=== PATIENT | male | born 1965 | race Caucasian/White ===

== ENCOUNTER 2017-05-23 14:54 | Inpatient (IN) | payer MEDICAID ==
[~2017-05-23] VITALS: Ht 188 cm; Wt 103.1 kg
[~2017-05-23 14:54] MED LIST: ATEN-60; PROP1CAP
[2017-05-23 15:43] LABS: Basophils # (auto) 0.2 uL; Basophils % (auto) 0.8 % (0.0-2.0); CONDITION Y; Eosinophils # (auto) 0 uL; Eosinophils % (auto) 0.1 % (0.0-7.0); Hemoglobin 15.2 g/dL (13.5-17.5); Lymphocytes % (auto) 14.4 % (10.0-50.0); Mean Corpuscular Hemoglobin 30.3 pg (28.0-32.0); Mean Corpuscular Hgb Conc. 33.7 g/dL (32.0-36.0); Mean Platelet Volume 8.4 fL (7.4-10.4); Monocytes # (auto) 0.6 uL; Monocytes % (auto) 3.1 % (0.0-12.0); Neutrophils # (auto) 16.9 uL; Neutrophils % (auto) 81.6 % (37.0-80.0); Platelet Count (auto) 383 10^3/uL (140-450); Red Cell Distribution Width 13.9 % (11.6-16.0); White Blood Cell 20.6 10^3/uL (4.4-10.8)
[2017-05-23 15:54] LABS: Albumin 4.3 g/dL (3.4-5.0); Calcium 9.3 mg/dL (8.5-10.1); Magnesium 2.1 mg/dL (1.6-2.6); Potassium 4.3 mmol/L (3.5-5.1)
[2017-05-23 15:56] LABS: Bilirubin, Total 0.6 mg/dL (0.2-1.0); Total Protein 8.4 g/dL (6.4-8.2)
[2017-05-23] MEDS ORDERED: SODIUM CHLORIDE 0.9% 1,000 ML IV ONE (16:04)
[2017-05-23] MEDS ORDERED: HYDROcodone-ACET 10/325MG TAB PO ONE (17:30)
[2017-05-23] MEDS ORDERED: LORazepam 0.5 MG TAB PO PRN (18:45)
[2017-05-23] MEDS ORDERED: ACETAMINOPHEN 500 MG TAB PO PRN (18:45)
[2017-05-23] MEDS ORDERED: TEMAZEPAM 15 MG CAP PO PRN (18:45)
[2017-05-23] MEDS ORDERED: NITROGLYCERIN 0.4 MG SL TAB SL PRN (18:45)
[2017-05-23] MEDS ORDERED: HYDROcodone-ACET 5/325MG TAB PO PRN (18:45)
[2017-05-23] MEDS ORDERED: MORPHINE SULF INJ 2 MG/ML SYRINGE 1ML IV PRN (18:45)
[2017-05-23] MEDS: SODIUM CHLORIDE 0.9% 1,000 ML IV SCH (18:54)
[2017-05-23 19:17] LABS: INR 0.95 (0.9-1.15); Partial Thromboplastin Time 27.8 sec (22.64-33.71); Prothrombin Time 10.3 sec (9.37-12.3)
[2017-05-23 20:44] LABS: BUN/Creatinine Ratio 7.3; Calcium 8.4 mg/dL (8.5-10.1); Potassium 4.4 mmol/L (3.5-5.1)
[2017-05-23] MEDS ORDERED: PANTOPRAZOLE 40 MG TAB PO ONE (21:00)
[2017-05-23] MEDS ORDERED: LISI40TA PO (21:59)
[2017-05-23] MEDS ORDERED: OMEP20CA74 PO (22:01)
[2017-05-23] MEDS ORDERED: FENO145T20 PO (22:01)
[2017-05-23 22:09] VITALS: BP 139/81
[2017-05-23 22:30] VITALS: BP 139/83
[2017-05-24] MEDS: SODIUM CHLORIDE 0.9% 1,000 ML IV SCH ×3 (02:06→14:35)
[2017-05-24 05:27] VITALS: BP 146/84
[2017-05-24 06:16] LABS: Basophils # (auto) 0.1 uL; Basophils % (auto) 0.4 % (0.0-2.0); CONDITION Y; Eosinophils # (auto) 0.1 uL; Eosinophils % (auto) 0.8 % (0.0-7.0); Hematocrit 39.7 % (41.0-53.0); Hemoglobin 13.3 g/dL (13.5-17.5); Lymphocytes # (auto) 3.7 uL; Lymphocytes % (auto) 26.5 % (10.0-50.0); Mean Corpuscular Hemoglobin 30.3 pg (28.0-32.0); Mean Corpuscular Hgb Conc. 33.5 g/dL (32.0-36.0); Mean Corpuscular Volume 90.4 fL (80.0-100.0); Mean Platelet Volume 8.7 fL (7.4-10.4); Monocytes # (auto) 0.8 uL; Monocytes % (auto) 5.9 % (0.0-12.0); Neutrophils # (auto) 9.1 uL; Neutrophils % (auto) 66.4 % (37.0-80.0); Platelet Count (auto) 300 10^3/uL (140-450); Red Cell Distribution Width 13.9 % (11.6-16.0); White Blood Cell 13.8 10^3/uL (4.4-10.8)
[2017-05-24 06:52] LABS: Albumin 3.2 g/dL (3.4-5.0); BUN/Creatinine Ratio 12.8; Bilirubin, Total 0.3 mg/dL (0.2-1.0); Calcium 8.6 mg/dL (8.5-10.1); Potassium 4.2 mmol/L (3.5-5.1); Total Protein 6.4 g/dL (6.4-8.2)
[2017-05-24 08:28] VITALS: BP 151/84
[2017-05-24] MEDS: PANTOPRAZOLE 40 MG TAB PO SCH (09:03)
[2017-05-24] MEDS: PROMETHAZINE HCL 25 MG/ML 1ML IV PRN ×3 (09:03→18:10)
[2017-05-24] MEDS: MORPHINE SULF INJ 2 MG/ML SYRINGE 1ML IV PRN ×4 (09:03→22:37)
[2017-05-24 13:00] VITALS: BP 153/81
[2017-05-24 16:51] VITALS: BP 141/79
[2017-05-24 19:24] LABS: Urine Bilirubin Negative (Negative); Urine Blood Negative /uL (Negative); Urine Color Yellow (Yellow); Urine Glucose Normal (Normal); Urine Ketone Negative (Negative); Urine Nitrite Negative (Negative); Urine RBC <1 /hpf (0 - 3); Urine Urobilinogen Normal (Negative); Urine pH 5.5 (5.0-8.0)
[2017-05-24 21:34] VITALS: BP 150/88
[2017-05-25] MEDS: SODIUM CHLORIDE 0.9% 1,000 ML IV SCH ×2 (02:11→05:44)
[2017-05-25] MEDS: MORPHINE SULF INJ 2 MG/ML SYRINGE 1ML IV PRN (04:57)
[2017-05-25 05:09] LABS: Basophils # (auto) 0 uL; Basophils % (auto) 0.4 % (0.0-2.0); CONDITION Y; Eosinophils # (auto) 0.2 uL; Eosinophils % (auto) 1.9 % (0.0-7.0); Hematocrit 38.7 % (41.0-53.0); Hemoglobin 12.8 g/dL (13.5-17.5); Lymphocytes # (auto) 3.6 uL; Lymphocytes % (auto) 30.2 % (10.0-50.0); Mean Corpuscular Hemoglobin 30.2 pg (28.0-32.0); Mean Corpuscular Volume 91.3 fL (80.0-100.0); Mean Platelet Volume 8.6 fL (7.4-10.4); Monocytes # (auto) 0.8 uL; Monocytes % (auto) 7.2 % (0.0-12.0); Neutrophils # (auto) 7.1 uL; Neutrophils % (auto) 60.3 % (37.0-80.0); Platelet Count (auto) 289 10^3/uL (140-450); Red Cell Distribution Width 13.8 % (11.6-16.0); White Blood Cell 11.8 10^3/uL (4.4-10.8)
[2017-05-25 05:15] VITALS: BP 150/101
[2017-05-25 05:38] LABS: Albumin 3.3 g/dL (3.4-5.0); BUN/Creatinine Ratio 16.7; Calcium 8.8 mg/dL (8.5-10.1); Potassium 4.3 mmol/L (3.5-5.1)
[2017-05-25 05:41] LABS: Bilirubin, Total 0.2 mg/dL (0.2-1.0); Total Protein 6.9 g/dL (6.4-8.2)
[2017-05-25 08:00] VITALS: BP 150/101
[2017-05-25 08:30] VITALS: BP 159/97
[2017-05-25] MEDS: PANTOPRAZOLE 40 MG TAB PO SCH (09:12)
[2017-05-25 10:37] VITALS: BP 159/97
== END 2017-05-25 12:00 | disposition home or self-care (01) | DRG 460 ==
LOC: ER 15:07 → TELE 15:08 → TELE-WESTW 21:40
PROVIDERS: ADMIT Internal Medicine; ATTEND Hospitalist
DX: N17.0 Acute kidney failure with tubular necrosis (principal); I12.9 Hypertensive chronic kidney disease with stage 1 through stage 4 chronic kidney disease, or unspecified chronic kidney disease; E78.00 Pure hypercholesterolemia, unspecified; E78.5 Hyperlipidemia, unspecified; T67.4XXA Heat exhaustion due to salt depletion, initial encounter; J45.909 Unspecified asthma, uncomplicated; K21.9 Gastro-esophageal reflux disease without esophagitis; E86.0 Dehydration; F17.210 Nicotine dependence, cigarettes, uncomplicated; G89.29 Other chronic pain; Z71.89 Other specified counseling; D72.829 Elevated white blood cell count, unspecified; N18.9 Chronic kidney disease, unspecified
CPT/HCPCS: 36415; 71020; 76775; 80048; 80053; 80061; 80307; 81001; 82550; 83735; 84443; 85025; 85610; 85652; 85730; 86141; 93005; 96360; 96361

== ENCOUNTER 2017-07-31 21:54 | Emergency (ER) | payer MEDICAID ==
[~2017-07-31] VITALS: Ht 188 cm; Wt 97.1 kg
[~2017-07-31 21:54] MED LIST changes: -ATEN-60; +FENO145T20 PO; +GABA-497 PO; +LISI40TA PO; +NAP500T PO; +OMEP20CA74 PO; -PROP1CAP
[2017-07-31 23:48] LABS: Albumin 3.7 g/dL (3.4-5.0); Anion Gap 9 (5-15); Calcium 8.5 mg/dL (8.5-10.1); Carbon Dioxide 21 mmol/L (21-32); Chloride 110 mmol/L (98-107); Glucose 97 mg/dL (74-106); Magnesium 2.5 mg/dL (1.6-2.6); Potassium 4.2 mmol/L (3.5-5.1); Sodium 140 mmol/L (136-145)
[2017-07-31 23:55] LABS: Alkaline Phosphatase 115 U/L (45-117); Aspartate Aminotransferase 11 U/L (15-37); BUN/Creatinine Ratio 9.8; Bilirubin, Total 0.2 mg/dL (0.2-1.0); Blood Urea Nitrogen 58 mg/dL (7-18); GFR African American 13 mL/min; GFR Non-African American 11 mL/min; Total Protein 7.3 g/dL (6.4-8.2)
[2017-08-01 00:22] LABS: Urine Bilirubin Negative (Negative); Urine Blood Negative /uL (Negative); Urine Color Yellow (Yellow); Urine Glucose Normal (Normal); Urine Hyaline Cast FEW /lpf (0 - 2); Urine Ketone Negative (Negative); Urine Mucus FEW (None Seen); Urine Nitrite Negative (Negative); Urine RBC <1 /hpf (0 - 3); Urine Urobilinogen Normal (Negative)
[2017-08-01 02:30] LABS: Basophils # (auto) 0 uL; Basophils % (auto) 0.1 % (0.0-2.0); CONDITION Y; Eosinophils # (auto) 0.2 uL; Eosinophils % (auto) 1.2 % (0.0-7.0); Hematocrit 38.9 % (41.0-53.0); Hemoglobin 13.1 g/dL (13.5-17.5); Lymphocytes % (auto) 24.7 % (10.0-50.0); Mean Corpuscular Hgb Conc. 33.7 g/dL (32.0-36.0); Mean Corpuscular Volume 89.1 fL (80.0-100.0); Mean Platelet Volume 9.1 fL (7.4-10.4); Monocytes # (auto) 0.7 uL; Monocytes % (auto) 4.4 % (0.0-12.0); Neutrophils # (auto) 11.2 uL; Neutrophils % (auto) 69.6 % (37.0-80.0); Platelet Count (auto) 383 10^3/uL (140-450); Red Cell Distribution Width 13.6 % (11.6-16.0); White Blood Cell 16.1 10^3/uL (4.4-10.8)
[2017-08-01] MEDS ORDERED: MORPHINE SULF INJ 2 MG/ML SYRINGE 1ML IV ONE (02:45)
[2017-08-01] MEDS ORDERED: ONDANSETRON HCL 4 MG/2 ML VIAL IV ONE (02:45)
[2017-08-01] MEDS ORDERED: SODIUM CHLORIDE 0.9% 2,000 ML IV ONE (02:45)
[2017-08-01 03:41] VITALS: BP 126/82
== END 2017-08-01 04:01 | disposition home or self-care (01) ==
LOC: EDBD 21:54 → ER 21:59
DX: N19 Unspecified kidney failure (principal); E86.0 Dehydration; W92.XXXA Exposure to excessive heat of man-made origin, initial encounter; N18.9 Chronic kidney disease, unspecified; K21.9 Gastro-esophageal reflux disease without esophagitis; E78.5 Hyperlipidemia, unspecified; I12.9 Hypertensive chronic kidney disease with stage 1 through stage 4 chronic kidney disease, or unspecified chronic kidney disease; F17.210 Nicotine dependence, cigarettes, uncomplicated; Z79.899 Other long term (current) drug therapy; Y93.89 Activity, other specified; Y92.89 Other specified places as the place of occurrence of the external cause; Y99.8 Other external cause status
CPT/HCPCS: 36415; 80053; 81001; 83735; 84484; 85025; 96361; 96374; 96375; 99284; J2270; J2405; J7030

== ENCOUNTER 2018-05-07 17:41 | Inpatient (IN) | payer MEDICAID ==
[~2018-05-07] VITALS: Ht 188 cm; Wt 97.5 kg
[~2018-05-07 17:41] MED LIST changes: -FENO145T20 PO; +FENO1TAB42 PO; -GABA-497 PO; +GABA300C10 PO
[2018-05-07 19:26] LABS: Basophils # (auto) 0.1 uL; Basophils % (auto) 0.6 % (0.0-2.0); Eosinophils # (auto) 0 uL; Eosinophils % (auto) 0.2 % (0.0-7.0); Hematocrit 43.4 % (41.0-53.0); Hemoglobin 14.6 g/dL (13.5-17.5); Lymphocytes # (auto) 3.9 uL; Lymphocytes % (auto) 19.5 % (10.0-50.0); Mean Corpuscular Hemoglobin 30.7 pg (28.0-32.0); Mean Corpuscular Hgb Conc. 33.6 g/dL (32.0-36.0); Mean Corpuscular Volume 91.3 fL (80.0-100.0); Monocytes # (auto) 1.4 uL; Monocytes % (auto) 7.2 % (0.0-12.0); Neutrophils # (auto) 14.5 uL; Neutrophils % (auto) 72.5 % (37.0-80.0); Nucleated Red Blood Cells % 0.1 %; Platelet Count (auto) 405 10^3/uL (140-450); Red Blood Cells 4.75 10^6/uL (4.5-5.90); Red Cell Distribution Width 14.4 % (11.8-14.3); White Blood Cell 19.9 10^3/uL (4.4-10.8)
[2018-05-07 19:39] LABS: Albumin 3.9 g/dL (3.4-5.0); Calcium 9.3 mg/dL (8.5-10.1); Potassium 4.6 mmol/L (3.5-5.1)
[2018-05-07] MEDS ORDERED: SODIUM CHLORIDE 0.9% 2,000 ML IV ONE (19:45)
[2018-05-07 19:47] LABS: BUN/Creatinine Ratio 6.5; Bilirubin, Total 0.5 mg/dL (0.2-1.0)
[2018-05-07] MEDS ORDERED: ONDANSETRON HCL 4 MG/2 ML VIAL IV ONE (20:00)
[2018-05-07] MEDS ORDERED: PANTOPRAZOLE 40 MG/10 ML VIAL IV ONE (20:00)
[2018-05-07 20:25] LABS: Magnesium 2.4 mg/dL (1.6-2.6)
[2018-05-07 20:31] LABS: INR 0.89 (0.9-1.15); Partial Thromboplastin Time 29.2 sec (23.78-33.04); Prothrombin Time 9.6 sec (9.27-12.13)
[2018-05-07] MEDS ORDERED: HYDROcodone-ACET 5/325MG TAB PO PRN (22:00)
[2018-05-07] MEDS ORDERED: ONDANSETRON HCL 4 MG/2 ML VIAL IV PRN (22:00)
[2018-05-07] MEDS ORDERED: ACETAMINOPHEN 500 MG TAB PO PRN (22:00)
[2018-05-07] MEDS ORDERED: IBUPROFEN 600 MG TAB PO PRN (22:15)
[2018-05-07] MEDS ORDERED: ALBUMIN 5% 250 ML IV ONE (22:15)
[2018-05-07] MEDS ORDERED: SODIUM CHLORIDE 0.9% 1,000 ML IV SCH (22:30)
[2018-05-08] VITALS (8 sets, daily range): BP systolic 93–121; BP diastolic 57–72
[2018-05-08] MEDS ORDERED: AMOX500T3 PO (02:16)
[2018-05-08] MEDS ORDERED: PERCOT PO (02:16)
[2018-05-08 05:08] LABS: Urine Bacteria FEW /hpf (None Seen); Urine Blood Negative /uL (Negative); Urine Hyaline Cast MANY /lpf (0 - 2); Urine Mucus FEW (None Seen); Urine Specific Gravity 1.026 (1.001-1.035); Urine WBC 16 /hpf (0 - 3)
[2018-05-08] MEDS: PANTOPRAZOLE 40 MG TAB PO SCH (05:32)
[2018-05-08] MEDS ORDERED: SODIUM CHLORIDE 0.9% 500 ML IV ONE (06:00)
[2018-05-08] MEDS: OXYCODONE W/ ACETAMINOPHEN 5/325MG TABLET PO PRN ×6 (06:10→22:30)
[2018-05-08 06:41] LABS: Basophils # (auto) 0 uL; Basophils % (auto) 0.3 % (0.0-2.0); Eosinophils # (auto) 0 uL; Eosinophils % (auto) 0.3 % (0.0-7.0); Hematocrit 34.7 % (41.0-53.0); Hemoglobin 11.5 g/dL (13.5-17.5); Lymphocytes # (auto) 3.4 uL; Lymphocytes % (auto) 23.5 % (10.0-50.0); Mean Corpuscular Hemoglobin 30.5 pg (28.0-32.0); Mean Corpuscular Hgb Conc. 33.3 g/dL (32.0-36.0); Mean Corpuscular Volume 91.7 fL (80.0-100.0); Monocytes # (auto) 1.5 uL; Monocytes % (auto) 10.1 % (0.0-12.0); Neutrophils # (auto) 9.6 uL; Neutrophils % (auto) 65.8 % (37.0-80.0); Nucleated Red Blood Cells % 0.1 %; Platelet Count (auto) 304 10^3/uL (140-450); Red Blood Cells 3.79 10^6/uL (4.5-5.90); White Blood Cell 14.5 10^3/uL (4.4-10.8)
[2018-05-08 06:49] LABS: BUN/Creatinine Ratio 7.5; Calcium 8.2 mg/dL (8.5-10.1); Potassium 4.7 mmol/L (3.5-5.1)
[2018-05-08] MEDS: SODIUM BICARBONATE 50ML VIAL 50 ML in D5W/SOD CHL 0.45% 1,000 ML IV SCH ×2 (10:48→18:54)
[2018-05-09] MEDS: SODIUM BICARBONATE 50ML VIAL 50 ML in D5W/SOD CHL 0.45% 1,000 ML IV SCH ×3 (03:18→18:36)
[2018-05-09] MEDS: OXYCODONE W/ ACETAMINOPHEN 5/325MG TABLET PO PRN ×5 (04:45→23:18)
[2018-05-09 04:56] VITALS: BP 135/77
[2018-05-09] MEDS: PANTOPRAZOLE 40 MG TAB PO SCH (05:52)
[2018-05-09 06:12] LABS: Basophils # (auto) 0.1 uL; Basophils % (auto) 0.8 % (0.0-2.0); Eosinophils # (auto) 0.1 uL; Eosinophils % (auto) 0.6 % (0.0-7.0); Hematocrit 35.9 % (41.0-53.0); Lymphocytes # (auto) 2.2 uL; Lymphocytes % (auto) 19.7 % (10.0-50.0); Mean Corpuscular Hemoglobin 30.3 pg (28.0-32.0); Mean Corpuscular Hgb Conc. 33.4 g/dL (32.0-36.0); Mean Corpuscular Volume 90.7 fL (80.0-100.0); Monocytes % (auto) 8.5 % (0.0-12.0); Neutrophils % (auto) 70.4 % (37.0-80.0); Nucleated Red Blood Cells % 0.1 %; Platelet Count (auto) 321 10^3/uL (140-450); Red Blood Cells 3.96 10^6/uL (4.5-5.90); Red Cell Distribution Width 14.2 % (11.8-14.3); White Blood Cell 11.4 10^3/uL (4.4-10.8)
[2018-05-09 06:31] LABS: Calcium 8.7 mg/dL (8.5-10.1); Potassium 5.1 mmol/L (3.5-5.1)
[2018-05-09 06:37] LABS: Bilirubin, Total 0.3 mg/dL (0.2-1.0); Total Protein 6.7 g/dL (6.4-8.2)
[2018-05-09 06:39] LABS: BUN/Creatinine Ratio 14.9
[2018-05-09 08:37] VITALS: BP 140/81
[2018-05-09 11:13] LABS: Protein, Urine 32.5 mg/dL (0.0-11.9)
[2018-05-09 12:49] VITALS: BP 141/80
[2018-05-09 16:44] VITALS: BP 148/81
[2018-05-09 22:00] VITALS: BP 149/88
[2018-05-10] MEDS: OXYCODONE W/ ACETAMINOPHEN 5/325MG TABLET PO PRN ×2 (04:07→13:04)
[2018-05-10] MEDS: SODIUM BICARBONATE 50ML VIAL 50 ML in D5W/SOD CHL 0.45% 1,000 ML IV SCH ×2 (04:11→13:03)
[2018-05-10 05:24] VITALS: BP 164/98
[2018-05-10] MEDS: PANTOPRAZOLE 40 MG TAB PO SCH (05:48)
[2018-05-10 06:41] LABS: Basophils # (auto) 0.1 uL; Basophils % (auto) 0.5 % (0.0-2.0); Eosinophils # (auto) 0.1 uL; Eosinophils % (auto) 1.2 % (0.0-7.0); Hematocrit 35.6 % (41.0-53.0); Hemoglobin 11.9 g/dL (13.5-17.5); Lymphocytes # (auto) 2.8 uL; Mean Corpuscular Hemoglobin 30.7 pg (28.0-32.0); Mean Corpuscular Hgb Conc. 33.5 g/dL (32.0-36.0); Mean Corpuscular Volume 91.7 fL (80.0-100.0); Monocytes # (auto) 0.9 uL; Monocytes % (auto) 8.1 % (0.0-12.0); Neutrophils # (auto) 7.2 uL; Neutrophils % (auto) 65.2 % (37.0-80.0); Nucleated Red Blood Cells % 0.1 %; Platelet Count (auto) 320 10^3/uL (140-450); Red Blood Cells 3.88 10^6/uL (4.5-5.90); Red Cell Distribution Width 13.5 % (11.8-14.3); White Blood Cell 11.1 10^3/uL (4.4-10.8)
[2018-05-10 06:57] LABS: Potassium 4.5 mmol/L (3.5-5.1)
[2018-05-10 07:02] LABS: BUN/Creatinine Ratio 21.6; Calcium 8.7 mg/dL (8.5-10.1)
[2018-05-10 08:00] VITALS: BP 142/85
[2018-05-10] MEDS ORDERED: amLODIPine BESYLATE 5 MG TAB PO ONE (10:15)
[2018-05-10 12:00] VITALS: BP 150/82
[2018-05-11] MEDS ORDERED: amLODIPine BESYLATE 5 MG TAB PO SCH (10:00)
== END 2018-05-10 15:48 | disposition home or self-care (01) | DRG 469 ==
LOC: ER 17:50 → TELE 23:07 → TELE-CENTR 05-08 01:16
PROVIDERS: ADMIT Nurse Practitioner Family; ATTEND Internal Medicine
DX: N17.0 Acute kidney failure with tubular necrosis (principal); R65.10 Systemic inflammatory response syndrome (SIRS) of non-infectious origin without acute organ dysfunction; E27.8 Other specified disorders of adrenal gland; E87.8 Other disorders of electrolyte and fluid balance, not elsewhere classified; E86.0 Dehydration; I12.9 Hypertensive chronic kidney disease with stage 1 through stage 4 chronic kidney disease, or unspecified chronic kidney disease; K57.90 Diverticulosis of intestine, part unspecified, without perforation or abscess without bleeding; K40.90 Unilateral inguinal hernia, without obstruction or gangrene, not specified as recurrent; K21.9 Gastro-esophageal reflux disease without esophagitis; N18.9 Chronic kidney disease, unspecified; E78.5 Hyperlipidemia, unspecified; D64.9 Anemia, unspecified; F17.210 Nicotine dependence, cigarettes, uncomplicated; K76.0 Fatty (change of) liver, not elsewhere classified; M19.90 Unspecified osteoarthritis, unspecified site; N12 Tubulo-interstitial nephritis, not specified as acute or chronic; T39.395A Adverse effect of other nonsteroidal anti-inflammatory drugs [NSAID], initial encounter; Z96.642 Presence of left artificial hip joint; Z79.899 Other long term (current) drug therapy; Y92.89 Other specified places as the place of occurrence of the external cause; Z87.442 Personal history of urinary calculi
CPT/HCPCS: 36415; 71045; 74176; 76775; 80048; 80053; 81001; 82150; 82570; 83036; 83690; 83735; 83880; 84154; 84156; 84300; 84484; 85025; 85610; 85730; 87040; 93005; 96361; 96374; 96375; 99291; C9113; J2405

== ENCOUNTER 2019-02-25 15:44 | Emergency (ER) | payer MEDICAID ==
[~2019-02-25] VITALS: Ht 188 cm; Wt 99.8 kg
[~2019-02-25 15:44] MED LIST changes: -LISI40TA PO; -NAP500T PO; +PERCOT PO
[2019-02-25 15:52] VITALS: BP 157/90
== END 2019-02-25 17:44 | disposition home or self-care (01) ==
LOC: ER 15:44
DX: S61.215A Laceration without foreign body of left ring finger without damage to nail, initial encounter (principal); I12.9 Hypertensive chronic kidney disease with stage 1 through stage 4 chronic kidney disease, or unspecified chronic kidney disease; N18.9 Chronic kidney disease, unspecified; K21.9 Gastro-esophageal reflux disease without esophagitis; E78.5 Hyperlipidemia, unspecified; F17.210 Nicotine dependence, cigarettes, uncomplicated; Z87.442 Personal history of urinary calculi; W26.8XXA Contact with other sharp object(s), not elsewhere classified, initial encounter; Y93.E9 Activity, other interior property and clothing maintenance; Y92.096 Garden or yard of other non-institutional residence as the place of occurrence of the external cause; Y99.8 Other external cause status
CPT/HCPCS: 12001; 29130

== ENCOUNTER 2020-08-10 13:44 | Inpatient (IN) | payer MEDICAID ==
[~2020-08-10] VITALS: Ht 188 cm; Wt 105.0 kg
[~2020-08-10 13:44] MED LIST changes: +FENO145T27 PO; -FENO1TAB42 PO
[2020-08-10] MEDS ORDERED: MORPHINE SULFATE 4 MG/ML SYR/VIAL IV ONE (14:00)
[2020-08-10] MEDS ORDERED: ONDANSETRON HCL 4 MG/2 ML VIAL IV ONE (14:00)
[2020-08-10] MEDS ORDERED: ASPirin 81 mg TAB PO ONE (14:00)
[2020-08-10] MEDS ORDERED: NITROGLYCERIN 0.4 MG SL TAB SL ONE (14:00)
[2020-08-10 14:45] LABS: Basophils # (auto) 0.1 10 ^3/uL (0-0.2); Eosinophils # (auto) 0.2 10 ^3/uL (0-0.8); Eosinophils % (auto) 2.4 % (0.0-7.0); Hematocrit 42.7 % (41.0-53.0); Hemoglobin 14.4 g/dL (13.5-17.5); Lymphocytes # (auto) 3.4 10 ^3/uL (0.4-5.4); Lymphocytes % (auto) 34.9 % (10.0-50.0); Mean Corpuscular Hemoglobin 30.3 pg (28.0-32.0); Mean Corpuscular Hgb Conc. 33.8 g/dL (32.0-36.0); Mean Corpuscular Volume 89.6 fL (80.0-100.0); Monocytes # (auto) 0.8 10 ^3/uL (0-1.3); Neutrophils # (auto) 5.2 10 ^3/uL (1.6-8.6); Neutrophils % (auto) 53.7 % (37.0-80.0); Nucleated Red Blood Cells % 0.1 %; Platelet Count (auto) 330 10^3/uL (140-450); Red Blood Cells 4.77 10^6/uL (4.5-5.90); Red Cell Distribution Width 13.6 % (11.8-14.3); White Blood Cell 9.7 10^3/uL (4.4-10.8)
[2020-08-10 15:01] LABS: INR 0.92 (0.9-1.15); Partial Thromboplastin Time 25.3 sec (23.0-31.2)
[2020-08-10 15:02] LABS: Albumin 3.6 g/dL (3.4-5.0); Calcium 8.6 mg/dL (8.5-10.1); Magnesium 2.1 mg/dL (1.6-2.6); Potassium 4.1 mmol/L (3.5-5.1)
[2020-08-10 15:07] LABS: BUN/Creatinine Ratio 12.1; Bilirubin, Total 0.2 mg/dL (0.2-1.0); Total Protein 7.3 g/dL (6.4-8.2)
[2020-08-10] MEDS ORDERED: HEPARIN SODIUM (PORCINE) 5000 UNITS/ML 1ML VIAL IV ONE ×2 (15:30→15:45)
[2020-08-10] MEDS ORDERED: MORPHINE SULF INJ 2 MG/ML SYRINGE 1ML IV PRN (16:00)
[2020-08-10] MEDS ORDERED: NITROGLYCERIN 0.4 MG SL TAB SL PRN (16:00)
[2020-08-10] MEDS ORDERED: ONDANSETRON HCL 4 MG/2 ML VIAL IV PRN (16:00)
--- NOTE | 2020-08-10 16:00 | NUR ---
Patient resting in bed, no s/s of distress/SOB. Right radial site remains unchanged. Addendum: 08/10/20 at 1817 by Christine Durbin RN RN Time is to be for 1800, disregard time at 1600.
[2020-08-10] MEDS ORDERED: IOHEXOL 350 MG/ML 100ML IJ ONE (16:23)
[2020-08-10] MEDS ORDERED: LIDOCAINE 2%HCL (LOCAL ANESTH.) INJ 20ML MDV ONE (16:23)
[2020-08-10] MEDS ORDERED: VERAPAMIL 2.5MG/ML INJ 2ML VIAL IV ONE (16:52)
[2020-08-10] MEDS ORDERED: HEPARIN SODIUM (PORCINE) 5000 UNITS/ML 1ML VIAL ONE (16:52)
[2020-08-10] MEDS ORDERED: fentaNYL CITRATE 100 MCG/2 ML VL ONE (16:52)
[2020-08-10] MEDS ORDERED: ANGIOMAX 250 MG VIAL IV ONE (16:52)
[2020-08-10] MEDS ORDERED: MIDAZOLAM HCL 1MG/1ML-2 ML VIAL ONE (16:53)
[2020-08-10] MEDS ORDERED: SODIUM CHL 0.9% 50 ML ONE (16:53)
[2020-08-10] MEDS ORDERED: TICAGRELOR 90 MG TAB ONE (17:21)
[2020-08-10 17:23] LABS: Urine Bacteria NONE SEEN /hpf (None Seen); Urine Blood Negative /uL (Negative); Urine Hyaline Cast FEW /lpf (0 - 2); Urine Mucus FEW (None Seen); Urine Specific Gravity 1.019 (1.001-1.035); Urine WBC 1 /hpf (0 - 3)
[2020-08-10] MEDS ORDERED: ATORVASTATIN 20 MG TAB PO SCH (17:30)
--- NOTE | 2020-08-10 17:37 | NUR ---
Patient brought to recovery via [facility], report received from Eris, RN and Jannet RN. Patient is AO x 4, no s/s of distress, breaths are even and unlabored. Right radial site is benign, no s/s of bleeding or hematoma noted, Vasc Band in place. Positive circulation, movement and sensation noted to bilateral extremities. Continuous pulse ox in place to right first finger. Patient educated on post-procedure care and verbalized understanding.
--- NOTE | 2020-08-10 18:05 | NUR ---
Report given to JYOTI Mendoza.
--- NOTE | 2020-08-10 18:27 | NUR ---
Patient taken to telemetry unit via gurney, monitor worker in place. No s/s of distress noted upon departure. Primary RNKelly present at bedside to witness right radial site, benign, with no s/s of bleeding or hematoma. Vasc Band instructions given to primary RN. Bed is set in lowest locked position with side rails up x2, and call light is within reach. Care endorsed to JYOTI Mendoza.
[2020-08-10] MEDS: ATORVASTATIN 20 MG TAB PO SCH (18:57)
[2020-08-10] MEDS: HYDROcodone-ACET 5/325MG TAB PO PRN ×2 (18:58→23:59)
[2020-08-10] MEDS ORDERED: FENO48TA12 PO (19:09)
[2020-08-10] MEDS ORDERED: ALBUAER3 IN (19:09)
[2020-08-10] MEDS ORDERED: OMEP-260 PO (19:09)
[2020-08-10] MEDS ORDERED: METF-370 PO (19:09)
[2020-08-10] MEDS ORDERED: OXYC325T14 PO (19:09)
[2020-08-10] MEDS ORDERED: ALBU0.084 NEB (19:09)
[2020-08-10] MEDS ORDERED: BACL10TA PO (19:09)
[2020-08-10] MEDS ORDERED: ASPI-498 PO (19:09)
[2020-08-10] MEDS ORDERED: AMLO10TA13 PO (19:09)
--- NOTE | 2020-08-10 19:30 | NUR ---
START OF SHIFT PT. AWAKE AND ALERT IN BED ON CELLPHONE. PT. NOT IN ANY PAIN AT THIS TIME. PT. ENCOURAGED TO CALL WITH CALL LIGHT IF HE NEEDS ANYTHING. WILL CONTINUE TO MONITOR PT. PRN.
--- NOTE | 2020-08-10 19:45 | NUR ---
VASC BAND AIR REMOVAL 2ML REMOVED PER DAY RN INSTRUCTION/NOTES. NO BLEEDING AT SITE. PT. TOLERATED WELL. WILL CONTINUE TO MONITOR PT. STATUS.
--- NOTE | 2020-08-10 20:00 | NUR ---
VASC BAND AIR REMOVAL 2ML REMOVED PER DAY RN INSTRUCTION/NOTES. NO BLEEDING AT SITE. PT. TOLERATED WELL. WILL CONTINUE TO MONITOR PT. STATUS.
--- NOTE | 2020-08-10 20:12 | NUR ---
VASC BAND AIR REMOVAL 2ML REMOVED PER DAY RN INSTRUCTION/NOTES. NO BLEEDING AT SITE. PT. TOLERATED WELL. WILL CONTINUE TO MONITOR PT. STATUS.
--- NOTE | 2020-08-10 20:40 | NUR ---
VASC BAND AIR REMOVAL 2ML REMOVED PER DAY RN INSTRUCTION/NOTES. NO BLEEDING AT SITE. PT. TOLERATED WELL. WILL CONTINUE TO MONITOR PT. STATUS.
--- NOTE | 2020-08-10 21:00 | NUR ---
VASC BAND AIR REMOVAL 2ML REMOVED PER DAY RN INSTRUCTION/NOTES. NO BLEEDING AT SITE. PT. TOLERATED WELL. BAND IS EMPTY OF AIR AT THIS TIME. BAND REMAINS IN PLACE PT. IS ASLEEP AT THIS TIME. WILL REMOVE IN THE AM AND REPLACE WITH DRESSING. WILL CONTINUE TO MONITOR PT. STATUS.
[2020-08-10] MEDS: CARVEDILOL 3.125 MG TAB PO SCH (21:57)
[2020-08-10] MEDS: TICAGRELOR 90 MG TAB PO SCH (21:58)
[2020-08-10] MEDS: GABAPENTIN 300 MG CAP PO SCH (21:58)
[2020-08-10 22:00] VITALS: BP 150/82
[2020-08-11] MEDS: TICAGRELOR 90 MG TAB PO SCH ×2 (02:11→09:31)
[2020-08-11] MEDS: HYDROcodone-ACET 5/325MG TAB PO PRN (04:05)
--- NOTE | 2020-08-11 04:20 | NUR ---
RECEIVED REPORT FROM KULWINDER MONTES. PATIENT ASLEEP RIGHT NOW. NO SIGNS OF DISTRESS.
[2020-08-11 04:57] VITALS: BP 133/77
[2020-08-11 05:43] LABS: Albumin 3.4 g/dL (3.4-5.0); Calcium 8.8 mg/dL (8.5-10.1)
[2020-08-11 05:49] LABS: BUN/Creatinine Ratio 17.8; Bilirubin, Total 0.4 mg/dL (0.2-1.0); Total Protein 6.8 g/dL (6.4-8.2)
[2020-08-11] MEDS: GABAPENTIN 300 MG CAP PO SCH ×2 (06:00→13:44)
[2020-08-11 08:00] VITALS: BP 149/91
--- NOTE | 2020-08-11 09:02 | NUR ---
OPENING SHIFT NOTE Assumed care of patient. PT is awake and A&OX4. No S/S of distress/SOB. Instructed on POC and to call for assist PRN, patient verbalized understanding. Call light within reach and able to use. Will continue to monitor for changes Q1hr and PRN.
[2020-08-11] MEDS: MORPHINE SULF INJ 2 MG/ML SYRINGE 1ML IV PRN ×2 (09:29→14:06)
[2020-08-11] MEDS: CARVEDILOL 3.125 MG TAB PO SCH (09:30)
[2020-08-11] MEDS ORDERED: PANTOPRAZOLE 40 MG TAB PO SCH (10:00)
[2020-08-11] MEDS ORDERED: LISINOPRIL 5 MG TAB PO SCH (10:00)
[2020-08-11] MEDS ORDERED: ASPirin 81 mg TAB PO SCH (10:00)
--- NOTE | 2020-08-11 11:00 | NUR ---
Pt c/o 06/08 non-radiating chest pain on right side. v/s wnl, ekg shows NSR. Administered 1 dose of nitroglycerin. Pt felt better after. is aware.
[2020-08-11 12:00] VITALS: BP 133/78
--- NOTE | 2020-08-11 12:21 | NUR ---
[employer] Operator weekend Per consult for home health safety evaluation. Faxed clinical information to [facility] and [facility]. Per Arianne with [facility] patient has been accepted and service to start within 24-48hrs upon d/c day.
--- NOTE | 2020-08-11 13:00 | NUR ---
Spoke with dr sim. dr sim stated he can not give cardiac clearance as he has not seen pt. Messaged dr english. awaiting call back.
--- NOTE | 2020-08-11 13:33 | NUR ---
SPOKE WITH DR ZAMORA. CLEARED PT FROM CARDIAC STAND POINT AND GAVE INSTRUCTIONS FOR PLAVIX ADMINISTRATION. DR Richar GUNTER IS AWARE AND WILL PLACE ORDERS.
[2020-08-11 16:00] VITALS: BP 140/67
[2020-08-11] MEDS ORDERED: LISI-275 PO (16:09)
[2020-08-11] MEDS ORDERED: ASPI-498 PO (16:09)
[2020-08-11] MEDS ORDERED: CAR3125T PO (16:09)
[2020-08-11] MEDS ORDERED: CLOP75TA28 PO (16:09)
[2020-08-11] MEDS ORDERED: ATOR20TA50 PO (16:09)
[2020-08-11] MEDS ORDERED: CLOPIDOGREL 300 MG TAB PO ONE (17:00)
[2020-08-11] MEDS: ATORVASTATIN 20 MG TAB PO SCH (17:07)
--- NOTE | 2020-08-11 17:48 | NUR ---
Discharge instructions given as ordered. Encourage to follow up with PMD as instructed. All questions and concerns addressed. Patient verbalized understanding. Medication reconciliation form completed and copy given to patient. IV removed with catheter intact, pressure dressing applied. Telemetry unit returned to ICU. Patient LEFT with all personal belongings, accompanied by staff and family member. No distress noted at time of departure.
== END 2020-08-11 17:48 | disposition home health service (06) | DRG 174 ==
LOC: EDBD 13:44 → ER 13:44 → TELE-WESTW 13:45
PROVIDERS: ADMIT Internal Medicine; ATTEND Internal Medicine
PROC: 4A023N7 Measurement of Cardiac Sampling and Pressure, Left Heart, Percutaneous Approach (ICD-10-PCS; principal; 2020-08-10)
PROC: B2111ZZ Fluoroscopy of Multiple Coronary Arteries using Low Osmolar Contrast (ICD-10-PCS; 2020-08-10)
PROC: B2151ZZ Fluoroscopy of Left Heart using Low Osmolar Contrast (ICD-10-PCS; 2020-08-10)
PROC: 027034Z Dilation of Coronary Artery, One Artery with Drug-eluting Intraluminal Device, Percutaneous Approach (ICD-10-PCS; 2020-08-10)
DX: I21.4 Non-ST elevation (NSTEMI) myocardial infarction (principal); E66.3 Overweight; E78.5 Hyperlipidemia, unspecified; F17.210 Nicotine dependence, cigarettes, uncomplicated; J44.9 Chronic obstructive pulmonary disease, unspecified; G89.4 Chronic pain syndrome; K21.9 Gastro-esophageal reflux disease without esophagitis; I12.9 Hypertensive chronic kidney disease with stage 1 through stage 4 chronic kidney disease, or unspecified chronic kidney disease; F41.9 Anxiety disorder, unspecified; M19.90 Unspecified osteoarthritis, unspecified site; E11.9 Type 2 diabetes mellitus without complications; Z79.899 Other long term (current) drug therapy; Z86.73 Personal history of transient ischemic attack (TIA), and cerebral infarction without residual deficits; Z87.442 Personal history of urinary calculi; Z79.891 Long term (current) use of opiate analgesic; Z79.01 Long term (current) use of anticoagulants; Z84.1 Family history of disorders of kidney and ureter; Z90.49 Acquired absence of other specified parts of digestive tract; Z79.84 Long term (current) use of oral hypoglycemic drugs; Z68.29 Body mass index [BMI] 29.0-29.9, adult; Z79.82 Long term (current) use of aspirin
CPT/HCPCS: 36415; 71045; 80053; 80061; 81001; 83735; 83880; 84443; 84484; 85025; 85610; 85730; 86850; 86900; 86901; 92928; 93005; 93306; 93458; 96374; 96375; 99152; 99153; 99291; C1874; C1887; G0378; J2250; J2405

== ENCOUNTER 2020-11-20 13:39 | Emergency (ER) | payer MEDICAID ==
[~2020-11-20] VITALS: Ht 188 cm; Wt 103.0 kg
[~2020-11-20 13:39] MED LIST changes: +ALBU0.084 NEB; +ALBUAER3 IN; +ASPI-498 PO; +ATOR20TA50 PO; +BACL10TA PO; +CAR3125T PO; +CLOP75TA28 PO; -FENO145T27 PO; +FENO48TA12 PO; -GABA300C10 PO; +LISI-275 PO; +OMEP-260 PO; -OMEP20CA74 PO; +OXYC325T14 PO; -PERCOT PO
[2020-11-20 14:28] LABS: Basophils # (auto) 0.1 10 ^3/uL (0-0.2); Eosinophils # (auto) 0.2 10 ^3/uL (0-0.8); Eosinophils % (auto) 1.5 % (0.0-7.0); Hematocrit 37.2 % (41.0-53.0); Hemoglobin 12.5 g/dL (13.5-17.5); Lymphocytes # (auto) 2.9 10 ^3/uL (0.4-5.4); Lymphocytes % (auto) 21.5 % (10.0-50.0); Mean Corpuscular Hemoglobin 30.1 pg (28.0-32.0); Mean Corpuscular Hgb Conc. 33.6 g/dL (32.0-36.0); Mean Corpuscular Volume 89.5 fL (80.0-100.0); Monocytes # (auto) 0.8 10 ^3/uL (0-1.3); Monocytes % (auto) 6.3 % (0.0-12.0); Neutrophils # (auto) 9.3 10 ^3/uL (1.6-8.6); Neutrophils % (auto) 69.7 % (37.0-80.0); Platelet Count (auto) 366 10^3/uL (140-450); Red Blood Cells 4.16 10^6/uL (4.5-5.90); White Blood Cell 13.3 10^3/uL (4.4-10.8)
[2020-11-20 14:42] LABS: Albumin 3.7 g/dL (3.4-5.0); BUN/Creatinine Ratio 14.5; Calcium 8.9 mg/dL (8.5-10.1); INR 0.97 (0.9-1.15); Magnesium 2.1 mg/dL (1.6-2.6); Partial Thromboplastin Time 24.7 sec (23.0-31.2); Potassium 4.2 mmol/L (3.5-5.1)
[2020-11-20 14:47] LABS: Bilirubin, Total 0.3 mg/dL (0.2-1.0); Total Protein 7.5 g/dL (6.4-8.2)
[2020-11-20] MEDS ORDERED: SODIUM CHLORIDE 0.9% 1,000 ML IV ONE ×2 (16:00→22:00)
[2020-11-20] MEDS ORDERED: HYDROcodone-ACET 5/325MG TAB ONE (18:29)
[2020-11-20] MEDS ORDERED: HYDROcodone-ACET 5/325MG TAB PO ONE (18:30)
[2020-11-20 20:20] LABS: Calcium 8.8 mg/dL (8.5-10.1); Potassium 3.9 mmol/L (3.5-5.1)
[2020-11-20 22:10] LABS: Urine Bacteria NONE SEEN /hpf (None Seen); Urine Blood Negative /uL (Negative); Urine Mucus FEW (None Seen); Urine Specific Gravity 1.026 (1.001-1.035); Urine WBC 2 /hpf (0 - 3)
[2020-11-20 22:50] VITALS: BP 105/65
== END 2020-11-21 00:23 | disposition home or self-care (01) ==
LOC: EDBD 13:39 → ER 13:39
DX: E86.0 Dehydration (principal); N17.9 Acute kidney failure, unspecified; I12.9 Hypertensive chronic kidney disease with stage 1 through stage 4 chronic kidney disease, or unspecified chronic kidney disease; N18.9 Chronic kidney disease, unspecified; K21.9 Gastro-esophageal reflux disease without esophagitis; F17.210 Nicotine dependence, cigarettes, uncomplicated; Z79.899 Other long term (current) drug therapy; Z79.82 Long term (current) use of aspirin; Z20.828 Contact with and (suspected) exposure to other viral communicable diseases
CPT/HCPCS: 36415; 71045; 80048; 80053; 81001; 83605; 83690; 83735; 83880; 84100; 84484; 85025; 85610; 85730; 87040; 87426; 93005; 96360; 96361; 99285; J7030

== ENCOUNTER → 2022-06-30 | Outpatient (CLI) | payer MEDICAID ==
[~2022-06-30] VITALS: Ht 185.4 cm; Wt 100.2 kg
[~2022-06-30] MED LIST changes: -ALBU0.084 NEB; -ALBUAER3 IN; +AMLO-496 PO; -ASPI-498 PO; +ASPI81CH49 PO; -ATOR20TA50 PO; +ATOR40TA52 PO; -BACL10TA PO; -CAR3125T PO; +CHLO50TA PO; -FENO48TA12 PO; -LISI-275 PO; +METO25TA93 PO; -OMEP-260 PO; -OXYC325T14 PO; +RANO500T PO
[2022-06-30 10:34] LABS: Basophils # (auto) 0.1 10 ^3/uL (0-0.2); Basophils % (auto) 0.8 % (0.0-2.0); Eosinophils # (auto) 0.3 10 ^3/uL (0-0.8); Eosinophils % (auto) 2.5 % (0.0-7.0); Hematocrit 41.6 % (41.0-53.0); Hemoglobin 13.6 g/dL (13.5-17.5); Lymphocytes # (auto) 3.5 10 ^3/uL (0.4-5.4); Lymphocytes % (auto) 28.8 % (10.0-50.0); Mean Corpuscular Hemoglobin 29.3 pg (28.0-32.0); Mean Corpuscular Hgb Conc. 32.7 g/dL (32.0-36.0); Mean Corpuscular Volume 89.7 fL (80.0-100.0); Monocytes # (auto) 0.8 10 ^3/uL (0-1.3); Monocytes % (auto) 6.2 % (0.0-12.0); Neutrophils # (auto) 7.4 10 ^3/uL (1.6-8.6); Neutrophils % (auto) 61.7 % (37.0-80.0); Red Blood Cells 4.63 10^6/uL (4.5-5.90); Red Cell Distribution Width 13.3 % (11.8-14.3); White Blood Cell 12.1 10^3/uL (4.4-10.8)
[2022-06-30 10:49] LABS: INR 0.96 (0.9-1.15); Partial Thromboplastin Time 25.7 sec (24.6-33.4)
[2022-06-30 10:58] LABS: Albumin 3.6 g/dL (3.4-5.0); Calcium 9.1 mg/dL (8.5-10.1)
[2022-06-30 11:03] LABS: BUN/Creatinine Ratio 11.7; Bilirubin, Total 0.3 mg/dL (0.2-1.0); Potassium 3.5 mmol/L (3.5-5.1); Total Protein 7.4 g/dL (6.4-8.2)
== END | disposition home or self-care (01) ==
LOC: LAB 10:15
PROVIDERS: ATTEND Internal Medicine
DX: I20.0 Unstable angina (principal)
CPT/HCPCS: 36415; 80053; 85025; 85610; 85730

== ENCOUNTER 2022-07-02 06:45 | Day surgery (SDC) | payer MEDICAID ==
[2022-07-02] VITALS (10 sets, daily range): BP systolic 104–121; BP diastolic 71–82
[2022-07-02] MEDS ORDERED: IODIXANOL 320MG/ML 100ML BTL IV ONE (07:34)
[2022-07-02] MEDS ORDERED: LIDOCAINE 2%HCL (LOCAL ANESTH.) INJ 10ml MDV ONE (07:35)
[2022-07-02] MEDS ORDERED: VERAPAMIL 2.5MG/ML INJ 2ML VIAL IV ONE (08:01)
[2022-07-02] MEDS ORDERED: HEPARIN SODIUM (PORCINE) 5000 UNITS/ML 1ML VIAL ONE (08:01)
[2022-07-02] MEDS ORDERED: ANGIOMAX 250 MG VIAL IV ONE (08:01)
[2022-07-02] MEDS ORDERED: MIDAZOLAM HCL 2MG/2ML 2ml VIAL (1mg/ml) ONE (08:02)
[2022-07-02] MEDS ORDERED: fentaNYL CITRATE 100 MCG/2 ML VL ONE (08:02)
[2022-07-02] MEDS ORDERED: SODIUM CHL 0.9% 0 ML ONE (08:02)
== END 2022-07-02 11:45 | disposition home or self-care (01) ==
LOC: CATH 06:45
PROVIDERS: ATTEND Internal Medicine
DX: R07.9 Chest pain, unspecified (principal); I20.9 Angina pectoris, unspecified; I10 Essential (primary) hypertension; E78.5 Hyperlipidemia, unspecified; I25.2 Old myocardial infarction; F17.290 Nicotine dependence, other tobacco product, uncomplicated; Z95.5 Presence of coronary angioplasty implant and graft; Z86.73 Personal history of transient ischemic attack (TIA), and cerebral infarction without residual deficits; Z79.82 Long term (current) use of aspirin; Z20.822 Contact with and (suspected) exposure to COVID-19
CPT/HCPCS: 93458; C1769; C1887; C1894; J1644; J2001; J2250; J3010; J7030; Q9967; U0003; 99152

== ENCOUNTER → 2023-01-22 | Outpatient (CLI) | payer MEDICAID ==
[~2023-01-22] VITALS: Ht 185.4 cm; Wt 99.8 kg
[~2023-01-22] MED LIST changes: +ADENOSINE 84 MG in GIVE UN-DILUTED 0 ML IV ONE
== END | disposition home or self-care (01) ==
LOC: XYW 08:20
PROVIDERS: ATTEND Internal Medicine
DX: R07.89 Other chest pain (principal); I25.10 Atherosclerotic heart disease of native coronary artery without angina pectoris; I71.40 Abdominal aortic aneurysm, without rupture, unspecified; I10 Essential (primary) hypertension; E78.5 Hyperlipidemia, unspecified; F17.200 Nicotine dependence, unspecified, uncomplicated
CPT/HCPCS: 78452; 93017; A9500; J0153

== ENCOUNTER 2024-04-05 16:42 | Inpatient (IN) | payer MEDICAID ==
[~2024-04-05] VITALS: Ht 188 cm; Wt 107.2 kg
[~2024-04-05 16:42] MED LIST changes: -ADENOSINE 84 MG in GIVE UN-DILUTED 0 ML IV ONE; -AMLO-496 PO; +AMLO1TAB23 PO
[2024-04-05 17:15] LABS: Basophils # (auto) 0 10 ^3/uL (0-0.2); Basophils % (auto) 0.1 % (0.0-2.0); Eosinophils # (auto) 0.1 10 ^3/uL (0-0.8); Eosinophils % (auto) 0.9 % (0.0-7.0); Hematocrit 44.1 % (41.0-53.0); Hemoglobin 14.2 g/dL (13.5-17.5); Lymphocytes # (auto) 3.1 10 ^3/uL (0.4-5.4); Lymphocytes % (auto) 20.7 % (10.0-50.0); Mean Corpuscular Hemoglobin 28.3 pg (28.0-32.0); Mean Corpuscular Hgb Conc. 32.2 g/dL (32.0-36.0); Mean Corpuscular Volume 87.8 fL (80.0-100.0); Monocytes # (auto) 0.8 10 ^3/uL (0-1.3); Monocytes % (auto) 5.1 % (0.0-12.0); Neutrophils % (auto) 73.2 % (37.0-80.0); Nucleated Red Blood Cells % 0.3 %; Red Blood Cells 5.02 10^6/uL (4.5-5.90); Red Cell Distribution Width 14.5 % (11.8-14.3)
[2024-04-05 17:32] LABS: INR 1.03 (0.9-1.15); Prothrombin Time 10.9 sec (9.3-11.8)
[2024-04-05 17:33] LABS: Alanine Aminotransferase 21 U/L (7-40); Albumin 4.7 g/dL (3.2-4.8); Alkaline Phosphatase 200 U/L (46-116); Anion Gap 6 (5-15); Aspartate Aminotransferase 10 U/L (13-40); BUN/Creatinine Ratio 10.3 (10.0-20.0); Blood Urea Nitrogen 12 mg/dL (9-23); Carbon Dioxide 25 mmol/L (20-30); Chloride 107 mmol/L (98-107); Glucose 121 mg/dL (74-106); Magnesium 1.9 mg/dL (1.6-2.6); Potassium 4.5 mmol/L (3.5-5.1); Sodium 138 mmol/L (136-145)
[2024-04-05 17:34] LABS: Bilirubin, Total 0.3 mg/dL (0.2-1.0); Total Protein 7.5 g/dL (5.7-8.2)
[2024-04-05] MEDS: ASPirin 81 mg TAB PO ONE (18:27)
[2024-04-05 18:35] VITALS: PULSE 85; RESP 18; O2SAT 95
[2024-04-05] MEDS ORDERED: QUET200T45 PO (19:54)
[2024-04-05] MEDS ORDERED: RIV20T PO (19:54)
[2024-04-05] MEDS ORDERED: SERT-160 PO (19:54)
[2024-04-05] MEDS ORDERED: QUET100T47 PO (19:54)
[2024-04-05] MEDS ORDERED: DEXTROSE (50%) 50ML SYRG IV PRN (20:00)
[2024-04-05] MEDS ORDERED: QUEtiapine FUMARATE 100 MG TAB PO PRN (20:00)
[2024-04-05] MEDS ORDERED: DOCUSATE SOD 100 MG CAP PO PRN (20:00)
[2024-04-05] MEDS ORDERED: ACETAMINOPHEN 325 MG TAB PO PRN (20:00)
[2024-04-05] MEDS: InsuLIN REG 1unit/0.01ml Soln (100units/ml) SC SCH (22:00)
[2024-04-05] MEDS: ACCU-CHEK COMFORT CURVE STRIP VI SCH (22:00)
[2024-04-05] MEDS: IOHEXOL 350 MG/ML 100ML IJ ONE (22:12)
[2024-04-05] MEDS: PANTOPRAZOLE 40 MG/10 ML VIAL INJ IV ONE (22:12)
[2024-04-05] MEDS: ONDANSETRON HCL 4 MG/2 ML VIAL IV PRN (22:12)
[2024-04-05] MEDS: cefTRIAXone 1GM/50ML D5W 50 ML IV ONE (22:12)
[2024-04-05] MEDS: MORPHINE SULFATE INJ 2 MG/ml SYRG IV PRN (22:13)
[2024-04-05] MEDS: ATORVASTATIN 20 MG TAB PO SCH (22:29)
[2024-04-05] MEDS ORDERED: MORPHINE SULFATE INJ 2 MG/ml SYRG IV PRN (22:30)
[2024-04-05] MEDS ORDERED: NITROGLYCERIN 0.4 MG SL TAB SL PRN (22:30)
[2024-04-05] MEDS: SODIUM CHLORIDE 0.9% 1,000 ML IV ONE (23:54)
[2024-04-06] VITALS (13 sets, daily range): BP systolic 134–163; BP diastolic 79–91; PULSE 78–86; RESP 11–19; TEMP 97.3–97.9; O2SAT 90–97
[2024-04-06] MEDS: HYDROcodone-ACET 5/325MG TAB PO PRN (00:44)
[2024-04-06 06:46] LABS: Alanine Aminotransferase 17 U/L (7-40); Alkaline Phosphatase 190 U/L (46-116); Calcium 10.1 mg/dL (8.5-10.1); Carbon Dioxide 24 mmol/L (20-30); Chloride 107 mmol/L (98-107); Triglycerides 251 mg/dL (< 150)
[2024-04-06 06:47] LABS: Albumin 4.6 g/dL (3.2-4.8); Anion Gap 6 (5-15); Aspartate Aminotransferase 17 U/L (13-40); BUN/Creatinine Ratio 9.7 (10.0-20.0); Blood Urea Nitrogen 10 mg/dL (9-23); Glucose 144 mg/dL (74-106); LDL Cholesterol 191 mg/dL (< 100); Potassium 4.2 mmol/L (3.5-5.1); Sodium 137 mmol/L (136-145)
[2024-04-06 06:48] LABS: Bilirubin, Total 0.2 mg/dL (0.2-1.0); Cholesterol 263 mg/dL (< 200); HDL Cholesterol 36 mg/dL (40-59); Total Protein 7.8 g/dL (5.7-8.2)
[2024-04-06 06:49] LABS: Basophils # (auto) 0.1 10 ^3/uL (0-0.2); Basophils % (auto) 0.7 % (0.0-2.0); Eosinophils # (auto) 0.2 10 ^3/uL (0-0.8); Eosinophils % (auto) 1.6 % (0.0-7.0); Hematocrit 43.8 % (41.0-53.0); Hemoglobin 14.2 g/dL (13.5-17.5); Lymphocytes # (auto) 3.3 10 ^3/uL (0.4-5.4); Lymphocytes % (auto) 22.4 % (10.0-50.0); Mean Corpuscular Hemoglobin 28.6 pg (28.0-32.0); Mean Corpuscular Hgb Conc. 32.4 g/dL (32.0-36.0); Mean Corpuscular Volume 88.3 fL (80.0-100.0); Monocytes # (auto) 0.8 10 ^3/uL (0-1.3); Monocytes % (auto) 5.7 % (0.0-12.0); Neutrophils # (auto) 10.2 10 ^3/uL (1.6-8.6); Neutrophils % (auto) 69.6 % (37.0-80.0); Nucleated Red Blood Cells % 0.1 %; Red Blood Cells 4.96 10^6/uL (4.5-5.90); Red Cell Distribution Width 14.7 % (11.8-14.3); White Blood Cell 14.7 10^3/uL (4.4-10.8)
[2024-04-06] MEDS: cefTRIAXone 1GM/50ML D5W 50 ML IV SCH (09:14)
[2024-04-06] MEDS: amLODIPine BESYLATE 5 MG TAB PO SCH (10:00)
[2024-04-06] MEDS ORDERED: ASPirin-EC 81 mg tab PO SCH (10:00)
[2024-04-06] MEDS ORDERED: ENOXAPARIN SOD 40 MG/0.4 ML SYRINGE SC SCH (10:00)
[2024-04-06] MEDS: CHLORTHALIDONE 50 MG PO SCH (10:00)
[2024-04-06] MEDS: SERTRALINE HCL 50 MG TAB PO SCH (10:00)
[2024-04-06] MEDS: PANTOPRAZOLE 40 MG/10 ML VIAL INJ IV SCH (10:00)
[2024-04-06] MEDS ORDERED: AMIODARONE HCL 200 MG TAB PO ONE (10:30)
[2024-04-06] MEDS: ANGIOMAX 250 MG VIAL IV ONE (13:19)
[2024-04-06] MEDS: SODIUM CHL 0.9% 0 ML ONE (13:20)
[2024-04-06] MEDS: HEPARIN SODIUM (PORCINE) 5000 UNITS/ML 1ML VIAL ONE (13:32)
[2024-04-06] MEDS: fentaNYL CITRATE 100 MCG/2 ML VL ONE (13:32)
[2024-04-06] MEDS: MIDAZOLAM HCL 2MG/2ML 2ml VIAL (1mg/ml) ONE (13:32)
[2024-04-06] MEDS: VERAPAMIL 2.5MG/ML INJ 2ML VIAL IV ONE (13:32)
[2024-04-06] MEDS: LIDOCAINE 2%HCL (LOCAL ANESTH.) INJ 20ML MDV ONE (14:03)
[2024-04-06] MEDS: IODIXANOL 320MG/ML 100ML BTL IV ONE (14:03)
[2024-04-06] MEDS: METOPROLOL SUCCINATE XL 50 MG TAB PO ONE (14:23)
[2024-04-06] MEDS: NICOTINE 14 MG/24HR TOPICAL PATCH TD ONE (14:25)
[2024-04-06 19:20] LABS: Erythrocyte Sedimentation Rate 21 mm/hr (0-20)
[2024-04-06] MEDS: QUEtiapine FUMARATE 100 MG TAB PO PRN ×2 (21:05→21:11)
[2024-04-06] MEDS: AMIODARONE HCL 200 MG TAB PO SCH (21:05)
[2024-04-06 22:35] LABS: Erythrocyte Sedimentation Rate 22 mm/hr (0-20)
[2024-04-07 01:00] VITALS: BP 133/75; PULSE 82; RESP 18; TEMP 97.7; O2SAT 92
[2024-04-07 05:00] VITALS: BP 140/89; PULSE 80; RESP 18; TEMP 97.6; O2SAT 89
[2024-04-07 06:18] LABS: Basophils # (auto) 0 10 ^3/uL (0-0.2); Basophils % (auto) 0.4 % (0.0-2.0); Eosinophils # (auto) 0.2 10 ^3/uL (0-0.8); Hematocrit 41.3 % (41.0-53.0); Hemoglobin 13.4 g/dL (13.5-17.5); Lymphocytes # (auto) 3.4 10 ^3/uL (0.4-5.4); Lymphocytes % (auto) 30.6 % (10.0-50.0); Mean Corpuscular Hemoglobin 28.3 pg (28.0-32.0); Mean Corpuscular Hgb Conc. 32.5 g/dL (32.0-36.0); Monocytes # (auto) 0.7 10 ^3/uL (0-1.3); Monocytes % (auto) 6.1 % (0.0-12.0); Neutrophils # (auto) 6.7 10 ^3/uL (1.6-8.6); Neutrophils % (auto) 60.9 % (37.0-80.0); Red Blood Cells 4.74 10^6/uL (4.5-5.90); Red Cell Distribution Width 14.2 % (11.8-14.3)
[2024-04-07 06:22] LABS: Anion Gap 6 (5-15); Carbon Dioxide 26 mmol/L (20-30); Chloride 108 mmol/L (98-107); Sodium 140 mmol/L (136-145)
[2024-04-07 06:23] LABS: Calcium 9.9 mg/dL (8.7-10.4)
[2024-04-07 06:28] LABS: BUN/Creatinine Ratio 12.5 (10.0-20.0); Blood Urea Nitrogen 10 mg/dL (9-23); Glucose 100 mg/dL (74-106)
[2024-04-07 08:03] VITALS: PULSE 74
[2024-04-07 08:30] VITALS: BP_SYST 147; BP_SYST 170; BP_DIAS 85; BP_DIAS 94; PULSE 102; PULSE 83; RESP 19; RESP 20; TEMP 97.9; TEMP 98.3; O2SAT 93; O2SAT 96
[2024-04-07] MEDS: METOPROLOL SUCCINATE XL 50 MG TAB PO SCH (09:56)
[2024-04-07] MEDS: CLOPIDOGREL BISULFATE 75 MG TAB PO SCH (09:56)
[2024-04-07] MEDS: FLECAINIDE ACETATE 50 MG TAB PO SCH (09:57)
[2024-04-07] MEDS: NICOTINE 14 MG/24HR TOPICAL PATCH TD SCH (10:24)
[2024-04-07 13:30] VITALS: BP 155/82; PULSE 78; RESP 18; TEMP 97.8; O2SAT 94
[2024-04-07] MEDS ORDERED: ATOR-47 PO (14:46)
[2024-04-07] MEDS ORDERED: RANO500T3 PO (15:31)
[2024-04-07] MEDS ORDERED: ATOR20TA50 PO (15:31)
[2024-04-07] MEDS ORDERED: SERT-160 PO (15:31)
[2024-04-07] MEDS ORDERED: QUET100T47 PO (15:31)
[2024-04-07] MEDS ORDERED: CLOP75TA28 PO (15:31)
[2024-04-07] MEDS ORDERED: RIV20T PO ×2 (15:31→15:49)
[2024-04-07] MEDS ORDERED: AMLO1TAB23 PO (15:31)
[2024-04-07] MEDS ORDERED: METO25TA93 PO (15:31)
[2024-04-07] MEDS ORDERED: RIVAROXABAN 20 MG TAB PO SCH (18:00)
== END 2024-04-07 16:30 | disposition home or self-care (01) | DRG 192 ==
LOC: ER 16:42 → TELE 22:31 → TELE-WESTW 04-06 16:05
PROVIDERS: ADMIT Nurse Practitioner Acute Care; ATTEND Nurse Practitioner Acute Care
PROC: 4A023N7 Measurement of Cardiac Sampling and Pressure, Left Heart, Percutaneous Approach (ICD-10-PCS; principal; 2024-04-06)
PROC: B211YZZ Fluoroscopy of Multiple Coronary Arteries using Other Contrast (ICD-10-PCS; 2024-04-06)
DX: T82.855A Stenosis of coronary artery stent, initial encounter (principal); E27.8 Other specified disorders of adrenal gland; I50.32 Chronic diastolic (congestive) heart failure; I11.0 Hypertensive heart disease with heart failure; E66.9 Obesity, unspecified; E11.9 Type 2 diabetes mellitus without complications; E78.5 Hyperlipidemia, unspecified; K46.9 Unspecified abdominal hernia without obstruction or gangrene; I48.0 Paroxysmal atrial fibrillation; F41.9 Anxiety disorder, unspecified; F17.210 Nicotine dependence, cigarettes, uncomplicated; I25.10 Atherosclerotic heart disease of native coronary artery without angina pectoris; I71.40 Abdominal aortic aneurysm, without rupture, unspecified; G89.29 Other chronic pain; K21.9 Gastro-esophageal reflux disease without esophagitis; Z87.442 Personal history of urinary calculi; Z79.4 Long term (current) use of insulin; Z68.30 Body mass index [BMI] 30.0-30.9, adult; Z86.73 Personal history of transient ischemic attack (TIA), and cerebral infarction without residual deficits; Z79.01 Long term (current) use of anticoagulants; Y84.8 Other medical procedures as the cause of abnormal reaction of the patient, or of later complication, without mention of misadventure at the time of the procedure; Y92.89 Other specified places as the place of occurrence of the external cause
CPT/HCPCS: 36415; 71045; 71260; 74177; 80048; 80053; 80061; 82962; 83036; 83615; 83735; 83880; 84443; 84484; 85025; 85610; 85652; 85730; 86141; 86431; 87040; 93005; 93306; 93458; 99152; 99291; C9113; G0378; J2250; J2405; Q9967

== ENCOUNTER 2024-06-03 12:15 | Emergency (ER) | payer MEDICAID ==
[~2024-06-03] VITALS: Ht 188 cm; Wt 103.6 kg
[~2024-06-03 12:15] MED LIST changes: -ASPI81CH49 PO; +ATOR-47 PO; +ATOR20TA50 PO; +QUET100T47 PO; +QUET200T45 PO; +RANO500T3 PO; +RIV20T PO; +SERT-160 PO
[2024-06-03 13:21] VITALS: BP 131/85; PULSE 86; RESP 17; TEMP 98; O2SAT 97
[2024-06-03] MEDS: KETOROLAC TROMETH 60MG/2ML VIAL IM ONE (13:43)
== END 2024-06-03 14:14 | disposition home or self-care (01) ==
LOC: ER 12:15
DX: S83.8X1A Sprain of other specified parts of right knee, initial encounter (principal); I10 Essential (primary) hypertension; K21.9 Gastro-esophageal reflux disease without esophagitis; E78.5 Hyperlipidemia, unspecified; F17.210 Nicotine dependence, cigarettes, uncomplicated; Z87.442 Personal history of urinary calculi; Z98.890 Other specified postprocedural states; Z79.899 Other long term (current) drug therapy; X58.XXXA Exposure to other specified factors, initial encounter; Y93.89 Activity, other specified; Y92.89 Other specified places as the place of occurrence of the external cause; Y99.8 Other external cause status
CPT/HCPCS: 73562; 96372; 99283; J1885

== ENCOUNTER 2024-09-03 10:20 | Inpatient (IN) | payer MEDICAID ==
[~2024-09-03] VITALS: Ht 188 cm; Wt 106.2 kg
[2024-09-03 11:14] LABS: Basophils # (auto) 0.2 10 ^3/uL (0-0.2); Basophils % (auto) 1.1 % (0.0-2.0); Eosinophils # (auto) 0.2 10 ^3/uL (0-0.8); Eosinophils % (auto) 1.4 % (0.0-7.0); Hematocrit 40.2 % (41.0-53.0); Hemoglobin 13.3 g/dL (13.5-17.5); Lymphocytes # (auto) 2.9 10 ^3/uL (0.4-5.4); Lymphocytes % (auto) 22.1 % (10.0-50.0); Mean Corpuscular Hemoglobin 29.8 pg (28.0-32.0); Mean Corpuscular Hgb Conc. 33.1 g/dL (32.0-36.0); Monocytes # (auto) 0.8 10 ^3/uL (0-1.3); Neutrophils # (auto) 9.2 10 ^3/uL (1.6-8.6); Neutrophils % (auto) 69.4 % (37.0-80.0); Nucleated Red Blood Cells % 0.1 %; Platelet Count (auto) 321 10^3/uL (140-450); Red Blood Cells 4.46 10^6/uL (4.5-5.90); Red Cell Distribution Width 14.3 % (11.8-14.3); White Blood Cell 13.3 10^3/uL (4.4-10.8)
[2024-09-03 11:15] VITALS: PULSE 89; RESP 12; O2SAT 94
[2024-09-03] MEDS ORDERED: TETANUS-DIPTH-ACEL PERTUSSIS 0.5ML SYR Tdap IM ONE (11:15)
[2024-09-03] MEDS ORDERED: cefTRIAXone 1GM/50ML D5W 50 ML IV ONE (11:15)
[2024-09-03 11:33] LABS: INR 1.01 (0.9-1.15); Partial Thromboplastin Time 29.7 SEC (24.5-34.5); Prothrombin Time 10.7 sec (9.3-11.8)
[2024-09-03 11:35] LABS: Alanine Aminotransferase 19 U/L (7-40); Albumin 4.5 g/dL (3.2-4.8); Alkaline Phosphatase 196 U/L (46-116); Anion Gap 5 (5-15); Aspartate Aminotransferase < 8 U/L (13-40); BUN/Creatinine Ratio 9.3 (10.0-20.0); Blood Urea Nitrogen 10 mg/dL (9-23); Calcium 9.7 mg/dL (8.7-10.4); Carbon Dioxide 24 mmol/L (20-31); Chloride 108 mmol/L (98-107); Glucose 248 mg/dL (74-106); Potassium 4.2 mmol/L (3.5-5.1); Sodium 137 mmol/L (136-145)
[2024-09-03 11:36] LABS: Bilirubin, Total 0.2 mg/dL (0.2-1.0); Total Protein 7.4 g/dL (5.7-8.2)
[2024-09-03 13:51] LABS: Urine Bacteria None Seen /hpf (None Seen)
[2024-09-03 14:15] LABS: Urine Blood Negative /uL (Negative); Urine Clarity Clear (Clear); Urine Color Light-Yellow (Yellow); Urine Protein, UAD Negative (Negative); Urine Specific Gravity 1.009 (1.001-1.035); Urine Urobilinogen Normal (Negative); Urine WBC <1 /hpf (0 - 3); Urine pH 5.5 (5.0-9.0)
[2024-09-03] MEDS: OXYCODONE W/ ACETAMINOPHEN 5/325MG TABLET PO ONE (15:40)
[2024-09-03] MEDS ORDERED: OXYC-963 PO (16:27)
[2024-09-03] MEDS ORDERED: ONDANSETRON HCL 4 MG/2 ML VIAL IV PRN (16:30)
[2024-09-03] MEDS ORDERED: ACETAMINOPHEN 325 MG TAB PO PRN (16:30)
[2024-09-03] MEDS ORDERED: NITROGLYCERIN 0.4 MG SL TAB SL PRN (16:30)
[2024-09-03] MEDS ORDERED: DEXTROSE (50%) 50ML SYRG IV PRN (16:30)
[2024-09-03] MEDS ORDERED: MORPHINE SULFATE INJ 2 MG/ml SYRG IV PRN ×2 (16:30)
[2024-09-03] MEDS ORDERED: DOCUSATE SOD 100 MG CAP PO PRN (16:30)
[2024-09-03] MEDS: InsuLIN REG 1unit/0.01ml Soln (100units/ml) SC SCH ×2 (17:00→20:55)
[2024-09-03 17:12] LABS: Alanine Aminotransferase 18 U/L (7-40); Albumin 4.3 g/dL (3.2-4.8); Alkaline Phosphatase 181 U/L (46-116); Anion Gap 7 (5-15); Aspartate Aminotransferase 8 U/L (13-40); BUN/Creatinine Ratio 9.1 (10.0-20.0); Blood Urea Nitrogen 9 mg/dL (9-23); Calcium 9.7 mg/dL (8.7-10.4); Carbon Dioxide 25 mmol/L (20-31); Chloride 109 mmol/L (98-107); Glucose 107 mg/dL (74-106); Potassium 4.2 mmol/L (3.5-5.1); Sodium 141 mmol/L (136-145)
[2024-09-03 17:13] LABS: Bilirubin, Total 0.3 mg/dL (0.2-1.0); Total Protein 7.1 g/dL (5.7-8.2)
[2024-09-03] MEDS: ACCU-CHEK COMFORT CURVE STRIP VI SCH (17:17)
[2024-09-03 18:15] VITALS: BP 154/77; PULSE 79; RESP 18; TEMP 98.4
[2024-09-03 18:29] VITALS: BP 154/77; PULSE 79; RESP 19; TEMP 98.4; O2SAT 96
[2024-09-03 18:38] VITALS: PULSE 79; RESP 19; O2SAT 96
[2024-09-03 18:44] LABS: COVID19 ANTIGEN SOFIA FIA NEGATIVE (NEGATIVE)
[2024-09-03 18:45] LABS: Rapid Influenza A Negative (Negative); Rapid Influenza B Negative (Negative)
[2024-09-03] MEDS ORDERED: PANT40TA2 PO (18:56)
[2024-09-03] MEDS ORDERED: QUET300T24 PO (18:56)
[2024-09-03 20:00] VITALS: PULSE 75; PULSE 78; RESP 16; O2SAT 97
[2024-09-03] MEDS: ATORVASTATIN 20 MG TAB PO SCH (21:57)
[2024-09-03] MEDS: RANOLAZINE ER 500 MG TAB PO SCH (21:58)
[2024-09-03] MEDS: QUEtiapine FUMARATE 100 MG TAB PO PRN (21:58)
[2024-09-03] MEDS: OXYCODONE W/ ACETAMINOPHEN 5/325MG TABLET PO PRN (21:58)
[2024-09-03] MEDS: SODIUM CHLOR 0.9% PF (SALINE LOCK) 10ML VIAL/SYR IV SCH (21:59)
[2024-09-03] MEDS: PANTOPRAZOLE 40 MG TAB PO SCH (21:59)
[2024-09-03 22:00] VITALS: BP 147/78; PULSE 79; RESP 20; TEMP 97.8; O2SAT 95
[2024-09-03] MEDS ORDERED: QUEtiapine FUMARATE 100 MG TAB PO PRN (22:00)
[2024-09-03] MEDS ORDERED: LORazepam 2MG/ML-1ML VIAL IV PRN (22:00)
[2024-09-03] MEDS ORDERED: QUEtiapine FUMARATE 100 MG TAB PO SCH (22:00)
[2024-09-03 22:15] LABS: Triglycerides 217 mg/dL (< 150)
[2024-09-03 22:16] LABS: LDL Cholesterol 150 mg/dL (< 100)
[2024-09-03 22:17] LABS: Cholesterol 219 mg/dL (< 200); HDL Cholesterol 32 mg/dL (40-59)
[2024-09-03 22:28] LABS: Amphetamine Screen, Urine Neg (NEGATIVE); Barbiturate Scree,Urine Neg (NEGATIVE); Benzodiazephine Screen, Urine Neg (NEGATIVE); Cannabinoid Screen, Urine Neg (NEGATIVE); Cocaine Screen, Urine Neg (NEGATIVE); Opiate Scree,Urine Neg (NEGATIVE); Phencyclidine Screen, Urine Neg (NEGATIVE)
[2024-09-04] VITALS (7 sets, daily range): BP systolic 139–150; BP diastolic 68–93; PULSE 75–97; RESP 16–20; TEMP 97.6–98.1; O2SAT 90–97
[2024-09-04 08:19] LABS: Basophils # (auto) 0.2 10 ^3/uL (0-0.2); Basophils % (auto) 1.3 % (0.0-2.0); Eosinophils # (auto) 0.3 10 ^3/uL (0-0.8); Eosinophils % (auto) 2.5 % (0.0-7.0); Hematocrit 42.2 % (41.0-53.0); Hemoglobin 13.9 g/dL (13.5-17.5); Lymphocytes # (auto) 3.3 10 ^3/uL (0.4-5.4); Lymphocytes % (auto) 28.1 % (10.0-50.0); Mean Corpuscular Hemoglobin 29.7 pg (28.0-32.0); Mean Corpuscular Volume 90.1 fL (80.0-100.0); Monocytes # (auto) 0.8 10 ^3/uL (0-1.3); Monocytes % (auto) 6.4 % (0.0-12.0); Neutrophils # (auto) 7.3 10 ^3/uL (1.6-8.6); Neutrophils % (auto) 61.7 % (37.0-80.0); Platelet Count (auto) 333 10^3/uL (140-450); Red Blood Cells 4.68 10^6/uL (4.5-5.90); Red Cell Distribution Width 14.3 % (11.8-14.3); White Blood Cell 11.9 10^3/uL (4.4-10.8)
[2024-09-04 08:42] LABS: Alanine Aminotransferase 19 U/L (7-40); Albumin 4.4 g/dL (3.2-4.8); Alkaline Phosphatase 194 U/L (46-116); Anion Gap 6 (5-15); Aspartate Aminotransferase 11 U/L (13-40); BUN/Creatinine Ratio 9.1 (10.0-20.0); Bilirubin, Total 0.3 mg/dL (0.2-1.0); Blood Urea Nitrogen 9 mg/dL (9-23); Carbon Dioxide 26 mmol/L (20-31); Chloride 107 mmol/L (98-107); Potassium 4.3 mmol/L (3.5-5.1); Sodium 139 mmol/L (136-145); Total Protein 7.3 g/dL (5.7-8.2)
[2024-09-04 08:46] LABS: Glucose 117 mg/dL (74-106)
[2024-09-04] MEDS: SERTRALINE HCL 50 MG TAB PO SCH (09:25)
[2024-09-04] MEDS: amLODIPine BESYLATE 5 MG TAB PO SCH (09:25)
[2024-09-04] MEDS: RIVAROXABAN 20 MG TAB PO SCH (09:25)
[2024-09-04] MEDS: LORazepam 2MG/ML-1ML VIAL IV PRN (12:58)
[2024-09-05 01:00] VITALS: BP 138/83; PULSE 76; RESP 18; TEMP 97.7; O2SAT 91
[2024-09-05 05:00] VITALS: BP 130/88; PULSE 88; RESP 20; TEMP 97.5; O2SAT 91
[2024-09-05 07:05] LABS: Basophils # (auto) 0.1 10 ^3/uL (0-0.2); Basophils % (auto) 0.5 % (0.0-2.0); Eosinophils # (auto) 0.4 10 ^3/uL (0-0.8); Hematocrit 39.6 % (41.0-53.0); Hemoglobin 13.2 g/dL (13.5-17.5); Lymphocytes # (auto) 3.3 10 ^3/uL (0.4-5.4); Lymphocytes % (auto) 27.1 % (10.0-50.0); Mean Corpuscular Hemoglobin 29.9 pg (28.0-32.0); Mean Corpuscular Hgb Conc. 33.3 g/dL (32.0-36.0); Mean Corpuscular Volume 89.9 fL (80.0-100.0); Monocytes # (auto) 0.8 10 ^3/uL (0-1.3); Monocytes % (auto) 6.6 % (0.0-12.0); Neutrophils # (auto) 7.6 10 ^3/uL (1.6-8.6); Neutrophils % (auto) 62.8 % (37.0-80.0); Platelet Count (auto) 307 10^3/uL (140-450); Red Cell Distribution Width 14.2 % (11.8-14.3)
[2024-09-05 07:21] LABS: Chloride 107 mmol/L (98-107); Potassium 4.2 mmol/L (3.5-5.1); Sodium 139 mmol/L (136-145)
[2024-09-05 07:22] LABS: Anion Gap 5 (5-15); Calcium 9.6 mg/dL (8.7-10.4); Carbon Dioxide 27 mmol/L (20-31)
[2024-09-05 07:27] LABS: Glucose 116 mg/dL (74-106)
[2024-09-05 07:28] LABS: BUN/Creatinine Ratio 9.7 (10.0-20.0); Blood Urea Nitrogen 11 mg/dL (9-23)
[2024-09-05 08:00] VITALS: PULSE 77; PULSE 88; RESP 16; O2SAT 97
[2024-09-05 09:00] VITALS: BP 146/80; PULSE 87; RESP 21; TEMP 98; O2SAT 90
[2024-09-05] MEDS: levETIRAcetam 500 MG TAB PO SCH (09:29)
[2024-09-05] MEDS ORDERED: KEP500T PO (11:15)
[2024-09-05 11:21] LABS: Folate (Folic Acid) 7.82 ng/mL (>5.38)
[2024-09-05 12:56] VITALS: BP 130/58
[2024-09-05 13:00] VITALS: BP 143/69; PULSE 77; RESP 18; TEMP 98; O2SAT 89
== END 2024-09-05 15:00 | disposition home or self-care (01) | DRG 468 ==
LOC: ER 10:20 → TELE 16:26 → TELE-WESTW 18:06
PROVIDERS: ADMIT Internal Medicine; ATTEND Internal Medicine
DX: E11.22 Type 2 diabetes mellitus with diabetic chronic kidney disease (principal); I25.110 Atherosclerotic heart disease of native coronary artery with unstable angina pectoris; I69.354 Hemiplegia and hemiparesis following cerebral infarction affecting left non-dominant side; E11.65 Type 2 diabetes mellitus with hyperglycemia; D72.829 Elevated white blood cell count, unspecified; E66.9 Obesity, unspecified; G40.109 Localization-related (focal) (partial) symptomatic epilepsy and epileptic syndromes with simple partial seizures, not intractable, without status epilepticus; E78.5 Hyperlipidemia, unspecified; F17.210 Nicotine dependence, cigarettes, uncomplicated; K21.9 Gastro-esophageal reflux disease without esophagitis; G89.29 Other chronic pain; I12.9 Hypertensive chronic kidney disease with stage 1 through stage 4 chronic kidney disease, or unspecified chronic kidney disease; N18.9 Chronic kidney disease, unspecified; R13.10 Dysphagia, unspecified; Z79.01 Long term (current) use of anticoagulants; Z68.30 Body mass index [BMI] 30.0-30.9, adult; Z96.642 Presence of left artificial hip joint; Z79.82 Long term (current) use of aspirin; Z79.899 Other long term (current) drug therapy; Z87.442 Personal history of urinary calculi; I25.2 Old myocardial infarction; Z95.5 Presence of coronary angioplasty implant and graft
CPT/HCPCS: 36415; 70450; 70551; 71045; 80048; 80053; 80061; 80307; 81001; 82306; 82607; 82746; 82962; 83036; 84443; 84484; 85025; 85610; 85730; 87040; 87426; 87804; 93005; 93306; 93886; 95819; 99291; G0378